=== PATIENT | female | born 1980 | race Caucasian/White ===

== ENCOUNTER 2017-07-09 06:05 | Emergency (ER) | payer OTHER ==
[~2017-07-09] VITALS: Ht 162.6 cm; Wt 59.0 kg
[2017-07-09] MEDS ORDERED: BIRTHCONTROL PO (06:15)
== END 2017-07-09 06:54 | disposition home or self-care (01) ==
LOC: ED 06:05
DX: S86.012A Strain of left Achilles tendon, initial encounter (principal); X58.XXXA Exposure to other specified factors, initial encounter
CPT/HCPCS: 99282